=== PATIENT | male | born 1990 | race Caucasian/White ===

== ENCOUNTER → 2023-12-30 | Outpatient (CLI) | payer BC ==
--- NOTE | 2023-12-30 13:31 | CA ---
Transthoracic Echo Report Name: Facundo Goldsmith Age: 33 Gender: M : 1990 Exam Date: 12/30/2023 09:57 Exam Location: [facility] Ht (in): 72 Wt (lb): 295 Ordering Physician: Javid Zapata MD Attending/Referring Phys: Liliana Deluca PAC Senior Customer Service Representative Sarah Lockett RDCS Procedure CPT: Indications: R07.89 other chest pain Cardiac Hx: Technical Quality: Good Contrast 1: Total Dose (mL): Contrast 2: Total Dose (mL): MEASUREMENTS (Male / Female) Normal Values 2D ECHO LV Diastolic Diameter PLAX 4.8 cm 4.2 - 5.9 / 3.9 - 5.3 cm LV Systolic Diameter PLAX 3.4 cm IVS Diastolic Thickness 1.1 cm 0.6 - 1.0 / 0.6 - 0.9 cm LVPW Diastolic Thickness 1.0 cm 0.6 - 1.0 / 0.6 - 0.9 cm LV Relative Wall Thickness 0.5 RV Internal Dim ED PLAX 3.5 cm LA Systolic Diameter LX 3.4 cm 3.0 - 4.0 / 2.7 - 3.8 cm LV Diastolic Volume MOD 4C 118.8 cm??? LV Systolic Volume MOD 4C 51.9 cm??? LV Ejection Fraction MOD 4C 56.3 % LV Cardiac Index MOD 4C 2059.6 cm???/min???m??? LV Diastolic Length 4C 9.0 cm LV Systolic Length 4C 7.2 cm LV Diastolic Volume MOD 2C 145.0 cm??? LV Systolic Volume MOD 2C 72.4 cm??? LV Ejection Fraction MOD 2C 50.0 % LV Cardiac Index MOD 2C 2234.2 cm???/min???m??? LV Diastolic Length 2C 8.8 cm LV Systolic Length 2C 7.6 cm M-MODE Aortic Root Diameter MM 3.1 cm DOPPLER AV Peak Velocity 149.1 cm/s AV Peak Gradient 8.9 mmHg Mitral E Point Velocity 76.2 cm/s Mitral A Point Velocity 76.7 cm/s Mitral E to A Ratio 1.0 MV Deceleration Time 222.3 ms MV E' Velocity 16.2 cm/s Mitral E to MV E' Ratio 4.7 TR Peak Velocity 218.1 cm/s TR Peak Gradient 19.0 mmHg Right Ventricular Systolic Press 29.0 mmHg FINDINGS Left Ventricle Left ventricular ejection fraction is estimated at 55-60 %. Left ventricular cavity size normal. Left ventricular wall thickness normal. Normal left ventricular wall motion. Right Ventricle Mild right ventricular dilatation. Right ventricular systolic pressure within normal limits. Right Atrium Normal right atrial size. No right atrial thrombus or mass seen. Left Atrium Normal left atrial size. No left atrial thrombus or mass present. Mitral Valve Structurally normal mitral valve. No mitral stenosis, regurgitation or prolapse. Aortic Valve Trileaflet aortic valve. No aortic valve stenosis or regurgitation. Tricuspid Valve Structurally normal tricuspid valve. Mild tricuspid regurgitation. Pulmonic Valve Structurally normal pulmonic valve. Trace pulmonic regurgitation. Pericardium No pericardial effusion. Aorta Normal size aortic root and proximal ascending aorta. CONCLUSIONS Left ventricular ejection fraction 55-60% No mitral regurgitation Mild tricuspid regurgitation RVSP 29 Previewed by: Dr. Jeffrey Rosenberg DO (Electronically Signed) Final Date: 30 December 2023 13:30
--- NOTE | 2023-12-30 13:41 | CA ---
Exercise Stress Test Report Name: Facundo Goldsmith Exam Date: 12/30/2023 09:04 Exam Location: [facility] Ht (in): 72 Wt (lb): 295 BSA: 2.51 Ordering Phys: Javid Zapata MD Referring Phys: Liliana Deluca PAC Technologist: Kay Samuel RDCS Age: 33 Gender: M : 1990 Procedure CPT: Indications: R07.89 other chest pain ICD-10 Codes: Patient History: Medications: PROZAC, OMEPERAZOLE Meds past 24 hrs: Pretest Chest Pain: STRESS TEST Brian Protocol Exercise Duration (min:sec): 10:[address] Depressions (mm): Angina Score: Sanz Score: Resting HR (bpm): 83 Peak HR (bpm): 164 Resting BP (mmHg): 128 / 60 Peak BP (mmHg): 218 / 64 MPHR: 189 Target HR: 161 % MPHR: 87 METS: 12.1 Total Dose: Peak Dose: Atropine: Double Product: 12894 BP Response: Stress Termination: Reached target heart rate Stress Symptoms: NO SYMPTOMS Stress Summary: ECG ANALYSIS Resting ECG: Stress ECG: CONCLUSIONS Patient underwent exercise stress EKG with a Brian protocol treadmill stress test. Patient exercised into Stage 3 for a total of 10 minutes and 19 seconds reaching a total of 12.1 METS. Patient's maximum heart rate was 164 which represented 86% age-predicted maximum heart rate. Stress EKG findings: At baseline patient's EKG showed normal sinus rhythm, normal axis, no significant ST or T wave abnormalities. At peak exercise, EKG showed no significant change from baseline. Conclusions: 1. Normal EKG response to exercise without evidence of inducible ischemia. 2. Good exercise capacity. Dr. Jeffrey Rosenberg DO (Electronically Signed) Final Date: 30 December 2023 13:40
== END | disposition home or self-care (01) ==
LOC: RADNMMAIN 08:33
PROVIDERS: ATTEND Family Medicine
DX: I36.1 Nonrheumatic tricuspid (valve) insufficiency (principal); R07.89 Other chest pain
CPT/HCPCS: 93017; 93306